=== PATIENT | male | born 1990 | race African-American/Black ===

== ENCOUNTER 2018-06-02 08:49 | Emergency (ER) | payer OTHER ==
[2018-06-02] MEDS ORDERED: VANCOMYCIN HCL INJ 1000 MG VIAL IV ONE (09:40)
[2018-06-02] MEDS ORDERED: DIPH/PERTUSS(ACELL)/TETANUS VAC/PF 0.5 ML SYR (>=10YO) IM ONE (09:41)
--- NOTE | 2018-06-02 09:43 | ER Document Report ---
ED Medical Screen (RME) - General Chief Complaint: Insect Bite Stated Complaint: INSECT BITE Time Seen by Provider: 06/02/18 09:37 Mode of Arrival: Ambulatory Information source: Patient Notes: This is a 27-year-old immunocompetent man with no significant medical problems who presents to the emergency room with erythema and swelling of the left hand with red streaks running up the inside of his left lower extremity. Patient states he awoke day morning with itching and he thought he had an insect bite on the dorsal aspect of the left hand. He states that the hand is progressively gotten erythematous, swelling with streaks. He does appear to have an area of induration which is approximately 1 x 2 cm on the dorsal aspect of the hand but there is no fluctuance. He does have warmth and erythema over the dorsal aspect of the hand which extends up the distal end of the forearm dorsally. Additionally, he has what appears to be lymphangitic spread up the volar aspect of the forearm and arm approaching the axilla. He has no tender lymphadenopathy in the left axilla. He denies any systemic symptoms of fever, myalgias or pain. His last tetanus shot was approximately 2010. TRAVEL OUTSIDE OF THE [place] IN LAST 30 DAYS: No - Related Data Allergies/Adverse Reactions: No Known Drug Allergies Allergy (Verified 06/02/18 08:54) Past Medical History - Social History Chew tobacco use (# tins/day): No Frequency of alcohol use: Occasional Drug Abuse: None Renal/ Medical History: Denies: Hx Peritoneal Dialysis Past Surgical History: Reports: Hx Oral Surgery - wisdom teeth, Hx Tonsillectomy Physical Exam - Vital signs Vitals: Temp Pulse Resp BP Pulse Ox 98.9 F 75 20 146/73 H 98 06/02/18 08:53 06/02/18 08:53 06/02/18 08:53 06/02/18 08:53 06/02/18 08:53 Course - Vital Signs Vital signs: Temp Pulse Resp BP Pulse Ox 98.9 F 75 20 146/73 H 98 06/02/18 08:53 06/02/18 08:53 06/02/18 08:53 06/02/18 08:53 06/02/18 08:53
[2018-06-02 10:22] LABS: ABSOLUTE EOSINOPHILS # (AUTO) 0.1 10^3/uL (0.0-0.6); RED CELL DISTRIBUTION WIDTH 13.8 % (11.5-14.0); TOTAL CELLS COUNTED % (AUTO) 100 %
[2018-06-02 10:29] LABS: ABSOLUTE LYMPHOCYTES (AUTO) 1.2 10^3/uL (0.5-4.7); ABSOLUTE MONOCYTES (AUTO) 0.6 10^3/uL (0.1-1.4); ABSOLUTE NEUT (AUTO) 3.3 10^3/uL (1.7-8.2); BASOPHILS % (AUTO) 0.3 % (0-2); EOSINOPHILS % (AUTO) 1.8 % (0-6); HEMATOCRIT 45.2 % (37.9-51.0); HEMOGLOBIN 15.1 g/dL (13.5-17.0); MEAN CORPUSCULAR HEMOGLOBIN 30.4 pg (27.0-33.4); MEAN CORPUSCULAR HGB CONC 33.4 g/dL (32.0-36.0); MEAN CORPUSCULAR VOLUME 91 fl (80-97); MONOCYTES % (AUTO) 10.7 % (3-13); PLATELET COUNT 217 10^3/uL (150-450); RED BLOOD COUNT 4.97 10^6/uL (4.35-5.55); SEGMENTED NEUTROPHILS % (AUTO) 63.2 % (42-78); WHITE BLOOD COUNT 5.2 10^3/uL (4.0-10.5)
--- NOTE | 2018-06-02 10:32 | ER Document Report ---
HPI - HPI Patient complains to provider of: Insect bite Onset: Yesterday Onset/Duration: Worse Quality of pain: Achy Pain Level: 1 Context: Patient states that he suspects that he got bit by an insect to the left wrist yesterday. Patient states today that gradually he has had increased redness and swelling to the left wrist and forearm. Patient denies any fever. Patient denies any history of IV drug use. Patient denies any history of MRSA. Associated Symptoms: Other - Left wrist and forearm swelling. denies: Fever Exacerbated by: Denies Relieved by: Denies Similar symptoms previously: No Recently seen / treated by doctor: No - ROS ROS below otherwise negative: Yes Systems Reviewed and Negative: Yes All other systems reviewed and negative - CONSTITUTIONAL Constitutional: DENIES: Fever - NEURO Neurology: DENIES: Weakness - GASTROINTESTINAL Gastrointestinal: DENIES: Nausea - MUSCULOSKELETAL Musculoskeletal: REPORTS: Extremity pain, Swelling - DERM Skin Color: Erythema Skin Problems: None Past Medical History - General Information source: Patient - Social History Smoking Status: Current Every Day Smoker Chew tobacco use (# tins/day): No Frequency of alcohol use: Occasional Drug Abuse: None Occupation: Active duty Family History: Reviewed & Not Pertinent Patient has suicidal ideation: No Patient has homicidal ideation: No - Medical History Medical History: Negative Renal/ Medical History: Denies: Hx Peritoneal Dialysis Past Surgical History: Reports: Hx Oral Surgery - wisdom teeth, Hx Tonsillectomy Vertical Provider Document - CONSTITUTIONAL Agree With Documented VS: Yes Exam Limitations: No Limitations General Appearance: WD/WN, No Apparent Distress - INFECTION CONTROL TRAVEL OUTSIDE OF THE [place] IN LAST 30 DAYS: No - HEENT HEENT: Atraumatic, Normocephalic - NECK Neck: Normal Inspection, Supple - RESPIRATORY Respiratory: Breath Sounds Normal, No Respiratory Distress - CARDIOVASCULAR Cardiovascular: Regular Rate, Regular Rhythm Pulses: Normal: Radial - MUSCULOSKELETAL/EXTREMETIES Musculoskeletal/Extremeties: MAEW, FROM, Tender - Minimal tenderness to dorsal aspect of left lateral wrist area. Patient with 2+ edema to left wrist, edema does extend to distal forearm. - NEURO Level of Consciousness: Awake, Alert, Appropriate Motor/Sensory: No Motor Deficit - DERM Integumentary: Warm, Dry Notes: Erythema to dorsal aspect of left wrist that extends to the hand distally and up the forearm with lymphangitic streaking that extends up left upper extremity , no axillary lymph adenopathy Course - Re-evaluation Re-evalutation: 06/02/18 12:35 Patient resting comfortably, denies any significant tenderness. IV antibiotics are infusing at this time. Patient's ultrasound reviewed, no concern for abscess at this time. We will plan to treat for cellulitis with lymphangitis and have patient return tomorrow for repeat examination. Patient verbalized understanding of this plan and is agreeable. Discussed worsening symptoms that patient should return medially for. - Vital Signs Vital signs: Temp Pulse Resp BP Pulse Ox 98.9 F 75 20 146/73 H 98 06/02/18 08:53 06/02/18 08:53 06/02/18 08:53 06/02/18 08:53 06/02/18 08:53 - Laboratory Result Diagrams: 06/02/18 09:57 06/02/18 09:57 Laboratory results interpreted by me: 06/02/18 12:35 Labs- Entire Visit 06/02/18 06/02/18 09:57 09:57 WBC 5.2 RBC 4.97 Hgb 15.1 Hct 45.2 MCV 91 MCH 30.4 MCHC 33.4 RDW 13.8 Plt Count 217 Seg Neutrophils % 63.2 Lymphocytes % 24.0 Monocytes % 10.7 Eosinophils % 1.8 Basophils % 0.3 Absolute Neutrophils 3.3 Absolute Lymphocytes 1.2 Absolute Monocytes 0.6 Absolute Eosinophils 0.1 Absolute Basophils 0.0 Sodium 144.5 Potassium 3.9 Chloride 103 Carbon Dioxide 28 Anion Gap 14 BUN 15 Creatinine 0.92 Est GFR ( Amer) > 60 Est GFR (Non-Af Amer) > 60 Glucose 93 Calcium 9.5 Total Bilirubin 1.0 Direct Bilirubin 0.1 Neonat Total Bilirubin Not Reportable Neonat Direct Bilirubin Not Reportable Neonat Indirect Bili Not Reportable AST 29 ALT 25 Alkaline Phosphatase 53 Total Protein 8.1 Albumin 4.4 - Diagnostic Test Radiology reviewed: Reports reviewed Discharge - Discharge Clinical Impression: Lymphangitis Cellulitis Qualifiers: Site of cellulitis: extremity Site of cellulitis of extremity: upper extremity Laterality: left Qualified Code(s): L03.114 - Cellulitis of left upper limb Condition: Stable Disposition: HOME, SELF-CARE Instructions: Cellulitis ([facility]), Cephalexin ([facility]), Trimethoprim-Sulfa ([facility]) Additional Instructions: Return immediately for any new or worsening symptoms Return tomorrow sometime after 9 AM for repeat examination Prescriptions: Cephalexin Monohydrate [Keflex 500 mg Capsule] 500 mg PO Q6H 7 Days capsule Sulfamethoxazole/Trimethoprim [Bactrim Ds Tablet] 1 each PO BID #20 tablet Forms: Return to Work Referrals: [facility] [Provider Group] - Follow up as needed
[2018-06-02 10:34] LABS: ALANINE AMINOTRANSFERASE 25 U/L (21-72); ALBUMIN 4.4 g/dL (3.5-5.0); ALKALINE PHOSPHATASE 53 U/L (38-126); ANION GAP 14 (5-19); ASPARTATE AMINO TRANSFERASE 29 U/L (17-59); BILIRUBIN,DIRECT 0.1 mg/dL (0.0-0.4); BLOOD UREA NITROGEN 15 mg/dL (7-20); CALCIUM 9.5 mg/dL (8.4-10.2); CARBON DIOXIDE 28 mmol/L (22-30); CHLORIDE 103 mmol/L (98-107); GLUCOSE 93 mg/dL (75-110); POTASSIUM 3.9 mmol/L (3.6-5.0); SODIUM 144.5 mmol/L (137-145); TOTAL PROTEIN 8.1 g/dL (6.3-8.2)
--- NOTE | 2018-06-02 12:16 | RADIOLOGY REPORT (SQ) ---
EXAM DESCRIPTION: U/S EXTREMITY NONVASCULAR LTD COMPLETED DATE/TIME: 06/02/2018 11:46 am REASON FOR STUDY: eval wrist, ?abscess COMPARISON: None. TECHNIQUE: Dynamic and static grayscale images acquired of the localized site of clinical concern an d recorded on PACS. Additional selected color Doppler and spectral images recorded. SITE OF CONCERN: Left wrist LIMITATIONS: None. FINDINGS: SKIN AND SUBCUTANEOUS TISSUES: No masses. No fluid collections. Some minimal soft tissue edema was identified. No foreign bodies. DEEP SOFT TISSUES/MUSCLES: No masses. No fluid collections. No edema. VASCULAR: No increased or decreased vascularity. No occlusions. OTHER: No other significant finding. IMPRESSION: NO SOFT TISSUE MASS, FLUID COLLECTION, OR FOREIGN BODY. Specifically no abscess collect ion was identified. Other findings as noted above TECHNICAL DOCUMENTATION: JOB ID: [id number] [employer]- All Rights Reserved Reading location - IP/workstation name: [email or web address]
[2018-06-02 14:24] VITALS: BP 128/72
== END 2018-06-02 14:24 | disposition home or self-care (01) ==
LOC: ER 08:49
DX: I89.1 Lymphangitis (principal); L03.114 Cellulitis of left upper limb; F17.200 Nicotine dependence, unspecified, uncomplicated; Z23 Encounter for immunization
CPT/HCPCS: 99283; 90471; 96365; 96366; 36415; 87040; 85025; 80053; 76882; 90715; J3370